=== PATIENT | male | born 1970 | race Caucasian/White ===

== ENCOUNTER 2017-07-05 13:35 | Emergency (ER) | payer OTHER ==
[~2017-07-05] VITALS: Ht 182.9 cm; Wt 85.7 kg
[2017-07-05] MEDS ORDERED: SODIUM CHLORIDE 0.9% 1,000 ML IV ONE (13:53)
[2017-07-05] MEDS ORDERED: LORazepam 2MG/ML-1ML VIAL IV ONE (14:00)
[2017-07-05] MEDS ORDERED: LEVETIRACETAM INJ 1,000 MG in SODIUM CHL 0.9% 100 ML IV ONE (14:00)
[2017-07-05 14:15] LABS: Basophils # (auto) 0 uL; Basophils % (auto) 0.3 % (0.0-2.0); Eosinophils # (auto) 0 uL; Eosinophils % (auto) 0.5 % (0.0-7.0); Hemoglobin 13.5 g/dL (13.5-17.5); Monocytes # (auto) 0.6 uL; Red Cell Distribution Width 12.3 % (11.8-14.3)
[2017-07-05 14:16] LABS: Hematocrit 37.7 % (41.0-53.0); Lymphocytes # (auto) 0.5 uL; Lymphocytes % (auto) 6.4 % (10.0-50.0); Mean Corpuscular Hemoglobin 34.3 pg (28.0-32.0); Mean Corpuscular Hgb Conc. 35.9 g/dL (32.0-36.0); Mean Corpuscular Volume 95.5 fL (80.0-100.0); Mean Platelet Volume 6.5 fL (6.9-10.8); Monocytes % (auto) 7.5 % (0.0-12.0); Neutrophils # (auto) 7.1 uL; Neutrophils % (auto) 85.3 % (37.0-80.0); Platelet Count (auto) 75 10^3/uL (140-450); White Blood Cell 8.3 10^3/uL (4.4-10.8)
[2017-07-05 14:34] LABS: BUN/Creatinine Ratio 13.3; Bilirubin, Total 2.1 mg/dL (0.2-1.0); Calcium 8.7 mg/dL (8.5-10.1); Potassium 3.3 mmol/L (3.5-5.1); Total Protein 8.2 g/dL (6.4-8.2)
[2017-07-05 14:39] LABS: Magnesium 1.2 mg/dL (1.6-2.6)
[2017-07-05] MEDS ORDERED: LABETALOL HCL 5 MG/ML ML 20ML VIAL IV ONE (16:30)
[2017-07-05] MEDS ORDERED: POTASSIUM CHL 10% (20 MEQ/15ML) 15ml ORAL SOLN PO ONE (16:45)
[2017-07-05] MEDS: MAGNESIUM SULFATE 1GM/100ML 100 ML IV SCH ×3 (17:07→19:25)
[2017-07-05 17:34] LABS: Urine Blood TRACE /uL (Negative); Urine Color Orange (Yellow); Urine Glucose Normal (Normal); Urine Ketone 1+ (Negative); Urine Mucus FEW (None Seen); Urine Nitrite Negative (Negative); Urine RBC 1 /hpf (0 - 3); Urine pH 6.5 (5.0-8.0)
[2017-07-05] MEDS ORDERED: PANTOPRAZOLE 40 MG TAB PO ONE (18:00)
[2017-07-05] MEDS ORDERED: cloNIDine HCL 0.1 MG TAB PO ONE (18:15)
[2017-07-05 18:27] LABS: Urine Bilirubin POSITIVE (Negative)
[2017-07-05 19:00] VITALS: BP 175/80
== END 2017-07-05 20:36 | disposition home or self-care (01) ==
LOC: ER 13:46
DX: S00.31XA Abrasion of nose, initial encounter (principal); G40.909 Epilepsy, unspecified, not intractable, without status epilepticus; E87.6 Hypokalemia; E03.9 Hypothyroidism, unspecified; I10 Essential (primary) hypertension; R94.5 Abnormal results of liver function studies; X58.XXXA Exposure to other specified factors, initial encounter; Y93.89 Activity, other specified; Y99.8 Other external cause status; Y92.89 Other specified places as the place of occurrence of the external cause
CPT/HCPCS: 36415; 70450; 71010; 80053; 80307; 80320; 81001; 83735; 84443; 84484; 85025; 93005; 94761; 96365; 96366; 96367; 96375; 99285; J1953; J3475; J7030